=== PATIENT | female | born 1995 ===

== ENCOUNTER 2020-03-15 19:09 | Emergency (ER) | payer OTHER, MEDICAID ==
[~2020-03-15] VITALS: Ht 162.6 cm; Wt 54.0 kg
[2020-03-15] MEDS ORDERED: ACETAMINOPHEN 325MG TABLET PO STA (19:33)
[2020-03-15] MEDS ORDERED: SODIUM CHLORIDE 0.9% 1,000 ML IV ONE (19:45)
[2020-03-15 20:13] LABS: BASOPHILS % 0.3 % (0.0-2.0); EOSINOPHILS % 2.6 % (0.0-5.0); HEMATOCRIT. 36.2 % (36.0-48.0); LYMPHOCYTES % 15.3 % (20.0-50.0); MEAN CORPUSCULAR HEMOGLOBIN 28.9 pg (28.0-32.0); MEAN CORPUSCULAR VOLUME 86.9 fL (81.0-99.0); MEAN PLATELET VOLUME 8.3 fl (7.4-10.4); MONOCYTES % 5.4 % (2.0-8.0); NEUTROPHILS % 76.4 % (40.0-76.0); PLATELET 208 x1000/uL (130-400); RED BLOOD CELL COUNT 4.16 mill/uL (4.2-5.4); RED CELL DISTRIBUTION WIDTH 14.6 % (11.6-14.6)
[2020-03-15 20:17] LABS: CHLORIDE 107 mEq/L (98-107)
[2020-03-15 20:42] LABS: CLARITY URINE CLOUDY (CLEAR); COLOR URINE YELLOW (YELLOW); KETONES URINE NEGATIVE (NEGATIVE); LEUKOCYTE ESTERASE URINE TRACE (NEGATIVE); NITRITE URINE NEGATIVE (NEGATIVE); OCCULT BLOOD URINE 3+ (NEGATIVE); PH URINE 6.5 (4.5-8.0); PROTEIN URINE TRACE (NEGATIVE); SPECIFIC GRAVITY URINE 1.024 (1.005-1.030); UROBILINOGEN URINE 0.2 E.U./dL (0.2-1.0)
[2020-03-15] MEDS ORDERED: CEPHALEXIN 250MG CAPSULE PO ONE (22:15)
[2020-03-15 22:55] VITALS: BP 106/67
== END 2020-03-15 22:57 | disposition home or self-care (01) ==
LOC: ER 19:09
DX: O23.31 Infections of other parts of urinary tract in pregnancy, first trimester (principal); Z3A.13 13 weeks gestation of pregnancy
CPT/HCPCS: 36415; 76805; 76817; 80053; 81003; 83690; 85025; 93005; 96360; 99285; J7030